=== PATIENT | male | born 1960 | race African-American/Black ===

== ENCOUNTER 2023-04-06 22:41 | Emergency (ER) | payer BC ==
[~2023-04-06] VITALS: Ht 177.8 cm; Wt 92.5 kg
--- NOTE | 2023-04-06 22:55 | NUR ---
PT TRIAGED AND PUT IN HALLWAY 1. REPORT GIVEN TO GABI ANDERSON
[2023-04-06 22:59] VITALS: BP_SYST 126; PULSE 72; RESP 16; TEMP 98; O2SAT 97
--- NOTE | 2023-04-06 23:00 | NUR ---
PT BIB FROM HOME C/O LACERATION / PUCNTURED BLISTER 1.5 CM DIAMETER ON LT LOWER LEG. PT DENIES PAIN OR TRAUMA. PT STATES STARTED A SMALL BLISTER BUT HAS INCREASED IN SIZE EVERYDAY. PT HX OF PROSTATE CANCER. PT RESTING IN BED VSS WITH BEDSIDE
--- NOTE | 2023-04-06 23:10 | NUR ---
ER at bedside examining patient.
[2023-04-06] MEDS ORDERED: DIPHTH,PERTUSS(ACELL),TET VAC 0.5 ML VIAL (Tdap) I.M. ONE (23:15)
[2023-04-06] MEDS ORDERED: BACITRACIN 1 GM OINT TP ONE (23:15)
[2023-04-06] MEDS ORDERED: BACTROBAN TP (23:16)
[2023-04-06] MEDS ORDERED: CEPH-548 PO (23:16)
--- NOTE | 2023-04-06 23:40 | NUR ---
CLEANED AND DRESSED WOUND. APPLIED BACITRACIN TO WOUND. PT TOLERATED WELL
[2023-04-06 23:50] VITALS: BP_SYST 126; PULSE 72; RESP 16; TEMP 98; O2SAT 97
--- NOTE | 2023-04-06 23:50 | NUR ---
Patient given written and verbal discharge instructions and verbalizes understanding. ER MD discussed with patient the results and treatment provided. Patient in stable condition. ID arm band removed. Rx of BACTROBAN TOPICAL OINT. AND CPHALEXIN given. Patient educated on CELLULITIS and to follow up with PMD. Pain Scale . Opportunity for questions provided and answered. Medication side effect fact sheet provided.
== END 2023-04-06 23:50 | disposition home or self-care (01) ==
LOC: SED 22:41
DX: L08.9 Local infection of the skin and subcutaneous tissue, unspecified (principal); Z79.899 Other long term (current) drug therapy
CPT/HCPCS: 90715; 99283

== ENCOUNTER 2023-08-16 11:54 | Emergency (ER) | payer BC ==
[~2023-08-16] VITALS: Ht 177.8 cm; Wt 90.7 kg
[~2023-08-16 11:54] MED LIST: BACTROBAN TP; CEPH-548 PO
[2023-08-16 12:00] VITALS: BP_SYST 161; PULSE 63; RESP 18; TEMP 98; O2SAT 98
[2023-08-16] MEDS ORDERED: NACL 0.9% 1,000 ML IV ONE (12:30)
[2023-08-16 12:35] LABS: BASOPHILS % (AUTO) 0.6 % (0.0-2.0); EOSINOPHILS # (AUTO) 0.1 K/uL (0.0-0.4); EOSINOPHILS % (AUTO) 2.4 % (0.0-4.0); HEMATOCRIT 34.7 % (36-54); LYMPHOCYTES # (AUTO) 1.1 K/uL (1.0-5.5); LYMPHOCYTES % (AUTO) 25.8 % (20.5-51.5); MEAN CORPUSCULAR HEMOGLOBIN 27 pg (27-31); MEAN CORPUSCULAR HGB CONC 32 % (32-36); MEAN CORPUSCULAR VOLUME 87 fL (79.0-98.0); MONOCYTES # (AUTO) 0.6 K/uL (0.0-1.0); MONOCYTES % (AUTO) 13.5 % (1.7-9.3); NEUTROPHILS # (AUTO) 2.4 K/uL (1.8-7.7); NEUTROPHILS % (AUTO) 57.7 % (40.0-70.0); PLATELET COUNT (AUTO) 309 K/uL (130-430); RED CELL DISTRIBUTION WIDTH 14.4 % (9.0-15.0); WHITE BLOOD COUNT (AUTO) 4.1 K/uL (4.8-10.8)
[2023-08-16 13:03] LABS: ANION GAP 11 (5-15); CALCIUM 10.2 mg/dL (8.4-11.0); CARBON DIOXIDE 23 mmol/L (23-29); CHLORIDE 97 mmol/L (98-107); CREATININE 1.69 mg/dL (0.55-1.30); GFR AFRICAN AMERICAN 53 mL/min (>90); GLUCOSE 101 mg/dL (74-106); SODIUM SERUM 131 mmol/L (136-145); UREA NITROGEN, BLOOD 18 mg/dL (8-21)
[2023-08-16 13:07] LABS: GFR NON AFRICAN-AMERICAN 44 mL/min (>90)
[2023-08-16 13:09] LABS: ALANINE AMINOTRANSFERASE 20 U/L (12-78); ALBUMIN 3.9 g/dL (3.4-4.8); ASPARTATE AMINOTRANSFERASE 21 U/L (10-37); BILIRUBIN,DIRECT 0.1 mg/dL (0.0-0.3); TOTAL BILIRUBIN 0.3 mg/dL (0.0-1.0)
[2023-08-16] MEDS ORDERED: GABAPENTIN 100 MG CAPSULE PO ONE (13:30)
[2023-08-16] MEDS ORDERED: MORPHINE 4 MG INJ. 4 MG/ML VIAL IVP ONE (13:30)
[2023-08-16] MEDS ORDERED: ONDANSETRON HCL 4 MG/2 ML VIAL IVP ONE (13:30)
[2023-08-16] MEDS ORDERED: valACYclovir HCL 500 MG TABLET PO ONE (13:30)
[2023-08-16] MEDS ORDERED: NEU300 PO (14:13)
[2023-08-16] MEDS ORDERED: OXYC-128 PO (14:13)
[2023-08-16] MEDS ORDERED: ACYC-133 PO (14:13)
[2023-08-16 14:46] VITALS: BP_SYST 141; PULSE 61; RESP 16; TEMP 98.7; O2SAT 96
== END 2023-08-16 14:22 | disposition home or self-care (01) ==
LOC: SED 11:54
DX: B02.9 Zoster without complications (principal); N17.9 Acute kidney failure, unspecified; N28.9 Disorder of kidney and ureter, unspecified; Z79.899 Other long term (current) drug therapy; Z85.46 Personal history of malignant neoplasm of prostate
CPT/HCPCS: 99285; 70450; 96374; 71045; 96361; 96375; 80076; 80048; 85025; 84484; 36415; 93005; 70486; 76376; J2405; J2270; J7030